=== PATIENT | female | born 1990 | race Caucasian/White ===

== ENCOUNTER 2019-04-30 10:02 | Day surgery (SDC) | payer BC ==
[~2019-04-30 10:02] MED LIST: Acetaminophen 500 MG TAB PO SCH; Iron Sucrose Complex 500 MG in Sodium Chloride 0.9% 250 ML 250 ML IVPB SCH
[2019-04-30 10:27] VITALS: BP 129/78; TEMP 98.3; BMI 41.3
== END 2019-04-30 14:30 | disposition home or self-care (01) ==
LOC: L&D/OP 10:02
PROVIDERS: ATTEND Obstetrics & Gynecology
DX: O99.019 Anemia complicating pregnancy, unspecified trimester (principal); Z3A.00 Weeks of gestation of pregnancy not specified
CPT/HCPCS: 96361; 96365; 96366; 99283; J1756; J7050

== ENCOUNTER 2019-05-11 19:07 | Day surgery (SDC) | payer BC ==
[2019-05-11 19:43] LABS: #Eosinphils 0.1 thou/uL (0.0-0.7); #Lymphocytes 1.5 thou/uL (1.20-3.40); #Monocytes 0.6 thou/uL (0.11-0.59); #Neutrophils 6.7 thou/uL (1.40-6.50); %Eosinophils 1.5 % (0.0-10.0); %Lymphocytes 16.5 % (21.0-51.0); %Monocytes 6.4 % (0.0-10.0); %Neutrophils 75.6 % (42.0-75.0); Hemoglobin 10.8 g/dL (12.0-16.0); Mean Corpuscular HGB CONC 31.9 g/dL (32.0-36.0); Mean Corpuscular Hemoglobin 27.8 pg (27.0-31.0); Mean Platelet Volume 11.2 fL (7.4-10.4); Platelet Count 129 thou/uL (130-400); Red Blood Cell (RBC) Count 3.89 mill/uL (4.20-5.40); White Blood Cell (WBC) Count 8.9 thou/uL (4.8-10.8)
[2019-05-12] MEDS ORDERED: Sodium Chloride 0.9% 10 ML ONE (02:48)
[2019-05-12 08:21] VITALS: BP 130/73; TEMP 98.1
== END 2019-05-12 10:04 | disposition home or self-care (01) ==
LOC: L&D/OP 19:07 → 3SE 19:08 → L&D/OP 05-12 10:04
PROVIDERS: ATTEND Obstetrics & Gynecology
DX: O99.013 Anemia complicating pregnancy, third trimester (principal); D64.9 Anemia, unspecified; Z3A.37 37 weeks gestation of pregnancy
CPT/HCPCS: 36415; 36430; 85025; 86850; 86900; 86901; P9016